=== PATIENT | male | born 1950 ===

== ENCOUNTER 2021-09-10 12:59 | Day surgery (SDC) | payer MEDICARE, MEDICAID ==
[~2021-09-10] VITALS: Ht 170.2 cm; Wt 95.1 kg
[2021-09-10 14:40] VITALS: BP 144/75; PULSE 67; TEMP 98.6
[2021-09-10] MEDS ORDERED: PROGRAF 0.5MG0.5 MG PO (15:08)
[2021-09-10] MEDS ORDERED: NORVASC 5MG5 MG/TAB PO (15:09)
[2021-09-10] MEDS ORDERED: ASPIRIN 81M81 MG/TA2 PO (15:09)
[2021-09-10] MEDS ORDERED: MASON NATURAL2000 IU PO (15:10)
[2021-09-10] MEDS ORDERED: LIPITOR20 MG PO (15:11)
[2021-09-10] MEDS ORDERED: NORCO 325 MG-101 TAB PO (15:12)
[2021-09-10] MEDS ORDERED: PROVENTIL0.09 MG/A1 IH (15:13)
[2021-09-10] MEDS ORDERED: PROTONIX 40MG T40 MG PO (15:14)
[2021-09-10 18:25] VITALS: BP 159/80; PULSE 56
--- NOTE | 2021-09-10 18:25 | NUR ---
Patient returns to room 4 per cart from PACU accompanied by Shanthi FERNANDEZ. Patient states that he wants to go home. Offered snack and fluids and states he will eat at home. States "I want my IV out and leave now." Agrees to drinking glass of orange juice.
[2021-09-10 18:40] VITALS: BP 151/89; PULSE 63
--- NOTE | 2021-09-10 18:40 | NUR ---
IV to INT and ambulatory to bathroom. Denies pain or nausea.
--- NOTE | 2021-09-10 18:46 | NUR ---
Patient is dressed and given dismissal instructions. INT needle discontinued. Spouse in room. Both verbalize understanding of dismissal instructions. Encouraged to force fluids and call Dr. Angelo with questions or concerns.
[2021-09-10 19:02] VITALS: BP 162/89; PULSE 55; TEMP 98.3
== END 2021-09-10 18:46 | disposition home or self-care (01) ==
LOC: SDCO 12:59
DX: N20.1 Calculus of ureter (principal); I10 Essential (primary) hypertension; I25.10 Atherosclerotic heart disease of native coronary artery without angina pectoris; E78.5 Hyperlipidemia, unspecified; J45.30 Mild persistent asthma, uncomplicated; E66.9 Obesity, unspecified; Z94.4 Liver transplant status; F17.210 Nicotine dependence, cigarettes, uncomplicated; Z79.82 Long term (current) use of aspirin; Z79.899 Other long term (current) drug therapy
CPT/HCPCS: C1769; C2617; J0690; J1100; J2405; J3010; J7120; Q9967